=== PATIENT | male | born 1950 | race Caucasian/White ===

== ENCOUNTER → 2020-11-15 17:10 | Outpatient (BNVA) | payer MEDICARE, OTHER, SELFPAY | PROVIDERS: Visit Provider Family Medicine | DX: E11.9 Type 2 diabetes mellitus without complications (principal); E78.2 Mixed hyperlipidemia; I10 Essential (primary) hypertension; K21.9 Gastro-esophageal reflux disease without esophagitis; N40.1 Benign prostatic hyperplasia with lower urinary tract symptoms; R35.1 Nocturia | CPT/HCPCS: 80053; 80061; 83036; 84443; 85025; G0103 ==

== ENCOUNTER → 2021-03-17 10:24 | Outpatient (BNVA) | payer MEDICARE, OTHER, SELFPAY | PROVIDERS: Visit Provider Family Medicine | DX: E11.9 Type 2 diabetes mellitus without complications (principal); E78.2 Mixed hyperlipidemia; I10 Essential (primary) hypertension | CPT/HCPCS: 80053; 80061; 83036; 85025 ==

== ENCOUNTER → 2021-07-07 10:39 | Outpatient (BNVA) | payer MEDICARE, OTHER, SELFPAY | PROVIDERS: PCP Nurse Practitioner; Visit Provider Family Medicine | DX: E11.9 Type 2 diabetes mellitus without complications (principal); I10 Essential (primary) hypertension; K21.9 Gastro-esophageal reflux disease without esophagitis; N40.1 Benign prostatic hyperplasia with lower urinary tract symptoms; R35.1 Nocturia; E78.2 Mixed hyperlipidemia | CPT/HCPCS: 80053; 80061; 83036; 84443; 85025; G0103 ==

== ENCOUNTER → 2021-10-05 12:07 | Outpatient (BNVA) | payer MEDICARE, OTHER, SELFPAY | PROVIDERS: PCP Family Medicine; Visit Provider Family Medicine | DX: E11.9 Type 2 diabetes mellitus without complications (principal) | CPT/HCPCS: 83036 ==

== ENCOUNTER → 2022-02-27 14:58 | Outpatient (BNVA) | payer MEDICARE, OTHER, SELFPAY | PROVIDERS: PCP Family Medicine; Visit Provider Nurse Practitioner Family | DX: R05.9 Cough, unspecified (principal); R42 Dizziness and giddiness; E78.2 Mixed hyperlipidemia; E55.9 Vitamin D deficiency, unspecified; E11.9 Type 2 diabetes mellitus without complications | CPT/HCPCS: 71046; 80053; 80061; 82306; 82607; 83036; 83735; 83880; 84439; 84443; 85025 ==

== ENCOUNTER → 2022-11-09 09:08 | Outpatient (BNVA) | payer MEDICARE, OTHER, SELFPAY | PROVIDERS: PCP Family Medicine; Visit Provider Family Medicine | DX: E11.9 Type 2 diabetes mellitus without complications (principal); I10 Essential (primary) hypertension; E78.5 Hyperlipidemia, unspecified; Z12.5 Encounter for screening for malignant neoplasm of prostate; E78.2 Mixed hyperlipidemia | CPT/HCPCS: 80053; 80061; 83036; 84443; 85025; G0103 ==

== ENCOUNTER → 2023-06-04 09:03 | Outpatient (BNVA) | payer MEDICARE, OTHER, SELFPAY | PROVIDERS: PCP Family Medicine; Visit Provider Family Medicine | DX: J30.2 Other seasonal allergic rhinitis (principal); G47.00 Insomnia, unspecified; E11.9 Type 2 diabetes mellitus without complications; I10 Essential (primary) hypertension; K21.9 Gastro-esophageal reflux disease without esophagitis; E78.5 Hyperlipidemia, unspecified | CPT/HCPCS: 80053; 80061; 82306; 83036; 84443; 85025 ==

== ENCOUNTER 2023-06-12 06:52 | Outpatient (CLI) | payer MEDICARE, OTHER, SELFPAY ==
--- NOTE | 2023-06-12 07:15 | USCV_ITS ---
Gary Sheffield Age: 72 Gender: M : 1950 Exam Date: 06/12/2023 07:22 Ordering Phys: Sultana Castro MD Technologist: Exam Location: [facility] [place]_ Indication: cca disease Risk Factors: Previous Vascular Surgery: Right Brachial BP: / Left Brachial BP: / Right Left Velocity (cm/s) Spectral Plaque Velocity (cm/s) Spectral Plaque Syst/Diast Broadening Syst/Diast Broadening 72.80/ 17.60 Prox CCA 51.70 / 10.50 60.60/ 12.10 Mid CCA 63.10 / 16.60 63.90/ 20.90 Hetro Distal CCA 67.50 / 20.10 Hetro 81.60/ 26.50 Hetro Prox ICA 119.70/ 50.60 Hetro 115.80/47.40 Hetro Mid ICA 113.60/ 39.50 Hetro 71.30/ 19.20 Distal ICA 90.10 / 34.60 112.50 ECA 65.25 1.59 ICA/CCA 1.78 Antegrade Vertebral Antegrade 49.10/ 16.70 cm/s 32.40/ 8.90 cm/s Tri Subclavian Tri 73.10 63.70 CONCLUSIONS Right ICA stenosis <50%. Moderate atheromatous plaque right carotid bulb/ICA. Left ICA stenosis <50%. Moderate atheromatous plaque left carotid bulb/ICA. Normal antegrade Doppler flow noted in the right vertebral artery. Normal antegrade Doppler flow noted in the left vertebral artery. Porfirio Hernandez MD (Electronically Signed) Final Date: 12 June 2023 11:33 S
== END 2023-06-12 06:53 | disposition home or self-care (01) ==
PROVIDERS: PCP Family Medicine; Visit Provider Family Medicine
DX: I65.23 Occlusion and stenosis of bilateral carotid arteries (principal)
CPT/HCPCS: 80053; 80061; 82306; 83036; 84443; 85025; 93880

== ENCOUNTER → 2023-11-06 09:51 | Outpatient (BNVA) | payer MEDICARE, OTHER, SELFPAY | PROVIDERS: PCP Family Medicine; Visit Provider Family Medicine | DX: E11.9 Type 2 diabetes mellitus without complications (principal); E78.2 Mixed hyperlipidemia; G47.00 Insomnia, unspecified; I10 Essential (primary) hypertension; K21.9 Gastro-esophageal reflux disease without esophagitis; E78.5 Hyperlipidemia, unspecified; Z12.5 Encounter for screening for malignant neoplasm of prostate | CPT/HCPCS: 80053; 80061; 83036; 84443; 85025; G0103 ==

== ENCOUNTER 2024-08-19 06:00 | Outpatient (RCR) | payer MEDICARE, OTHER, SELFPAY | END 2024-08-25 23:59 | disposition home or self-care (01) | LOC: TPT 06:00 | PROVIDERS: PCP Family Medicine; Visit Provider Orthopaedic Surgery | DX: Z98.890 Other specified postprocedural states (principal) | CPT/HCPCS: 97110; 97162 ==

== ENCOUNTER 2024-08-26 06:30 | Outpatient (RCR) | payer MEDICARE, SELFPAY | END 2024-09-25 23:59 | disposition home or self-care (01) | LOC: TPT 06:30 | PROVIDERS: PCP Family Medicine; Visit Provider Orthopaedic Surgery | DX: Z98.890 Other specified postprocedural states (principal) | CPT/HCPCS: 97110 ==

== ENCOUNTER 2024-09-26 06:00 | Outpatient (RCR) | payer MEDICARE, SELFPAY | END 2024-10-25 23:59 | disposition home or self-care (01) | LOC: TPT 06:00 | PROVIDERS: PCP Nurse Practitioner Family; Visit Provider Orthopaedic Surgery | DX: Z98.890 Other specified postprocedural states (principal) | CPT/HCPCS: 97110 ==

== ENCOUNTER → 2024-09-29 08:57 | Outpatient (BNVA) | payer MEDICARE, SELFPAY | PROVIDERS: PCP Nurse Practitioner Family; Visit Provider Nurse Practitioner Family | DX: I10 Essential (primary) hypertension (principal); E78.2 Mixed hyperlipidemia | CPT/HCPCS: 80053; 80061; 83036; 84443; 85025 ==

== ENCOUNTER 2024-10-26 06:00 | Outpatient (RCR) | payer MEDICARE, SELFPAY | END 2024-11-25 23:59 | disposition home or self-care (01) | LOC: TPT 06:00 | PROVIDERS: PCP Nurse Practitioner Family; Visit Provider Orthopaedic Surgery | DX: Z98.890 Other specified postprocedural states (principal) | CPT/HCPCS: 97110 ==

== ENCOUNTER 2024-11-13 15:09 | Emergency (ER) | payer MEDICARE, SELFPAY ==
[2024-11-13] VITALS (12 sets, daily range): BP systolic 82–134; BP diastolic 58–96; PULSE 68–144; TEMP 36.8; O2SAT 90–95; BMI 36.6
--- NOTE | 2024-11-13 15:28 | ECG_ITS ---
[facility] Test Date: 2024-11-13 Pat Name: Gary Sheffield Department: Room: Gender: Male Brusher Warp: : 1950 Requested By: Chung Estrada Order Number: [id number] Dung MD: Christiano Box M.D. Measurements Intervals [place] Rate: 167 P: 0 SD: 0 QRS: 20 QRSD: 84 T: 57 QT: 266 QTc: 443 Interpretive Statements ATRIAL FIBRILLATION WITH RAPID VENTRICULAR RESPONSE MODERATE ST DEPRESSION [0.05+ mV ST DEPRESSION] CRITICAL TEST RESULT No previous ECG available for comparison Electronically Signed On 11-13-2024 23:57:26 TAPING MACHINE OPERATOR by Christiano Box M.D. [id number]
[2024-11-13] MEDS: dilTIAZem 5 mg/mL SDV 5 mL 20 MG IVP (15:52)
[2024-11-13 15:56] LABS: Basophils % 0.2 %; Eosinophils # 0.1 10^3/uL (0.0-0.8); Eosinophils % 1.3 %; Hematocrit 45.5 % (37-53); Lymphocytes # 1.7 10^3/uL (0.8-4.8); Mean Corpuscular HGB Conc 31.4 g/dL (30-55); Mean Corpuscular Hemoglobin 27.3 pg (27-33); Mean Platelet Volume 10.4 fL (7.4-10.4); Monocytes # 0.5 10^3/uL (0.2-0.9); Monocytes % 6.4 %; Neutrophils # 5.83 10^3/uL (1.8-7.7); Neutrophils % 70.6 %; Nucleated Red Blood Cells % 0 %; Platelet Count 204 10^3/cmm (157-399); Red Blood Count 5.23 10^6/uL (3.85-5.65); Red Cell Distribution Width 13.6 % (12.1-15.1); White Blood Count 8.27 10^3/uL (3.29-11.43)
[2024-11-13] MEDS: dilTIAZem 100 MG in sodium chloride 0.9% (add-van) 100 ML IV (16:13)
[2024-11-13 16:22] LABS: Troponin(5th) Baseline 15 ng/L (0-15)
[2024-11-13 16:23] LABS: Alanine Aminotransferase 7 U/L (0-41); Albumin Level 4.1 g/dL (3.5-5.2); Alkaline Phosphatase 91 U/L (40-130); Anion Gap 15.8 (5-19); Aspartate Amino Transferase 9 U/L (0-40); Blood Urea Nitrogen 15 mg/dL (8-23); Carbon Dioxide 26 mmol/L (22-29); Chloride 105 mmol/L (98-107); Creatinine Clr Calc Pharmacy 86.3136; Globulin 2.1 g/dL (1.3-4.6); Glucose 179 mg/dL (65-115); Magnesium 2.1 mg/dL (1.7-2.3); Osmolality Calculated 301 mOsm/kg (285-295); Potassium 3.8 mmol/L (3.5-5.1); Sodium 143 mmol/L (136-145); Total Bilirubin 0.4 mg/dL (0.15-1.2); Total Protein 6.2 g/dL (6.6-8.7)
--- NOTE | 2024-11-13 16:23 | ED_ITS ---
HPI - Arrhythmia/Palpitations 2 General: Chief Complaint: Arrhythmia/Palpitations Stated Complaint: high hr Time Seen by Provider: 11/13/24 15:34 History of Present Illness: Presents to the ER with complaints of heart racing. 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 He felt his heart was skipping beats. Patient denies any chest pain shortness of breath diaphoresis. Patient [place] any cardiac history does not see a shirt hemmer. Has never had this before. Related Data Home Medications Medication Instructions Recorded Confirmed atorvastatin 40 mg tablet 40 mg PO DAILY 11/13/24 11/13/24 cetirizine 10 mg tablet 10 mg PO DAILY 11/13/24 11/13/24 dapagliflozin propanediol 10 mg 10 mg PO DAILY 11/13/24 11/13/24 tablet (Farxiga) Previous Rx's Medication Instructions Recorded lancets (Accu-Chek Softclix #300 ea 03/22/21 Lancets) Prosthesis for right arm #1 ea 09/20/21 Recreational accessories for #1 ea 04/11/22 electric arm ibuprofen 800 mg tablet 800 mg PO Q8H #30 tabs 01/16/24 blood sugar diagnostic (Accu-Chek #100 ea 09/29/24 Alpa Plus test strips) glipizide 2.5 mg tablet, extended 2.5 mg PO DAILY #90 tabs 09/29/24 release 24 hr pantoprazole 40 mg tablet,delayed 40 mg PO DAILY #90 tabs 09/29/24 release tamsulosin 0.4 mg capsule (Flomax) 0.4 mg PO DAILY #30 caps 09/29/24 trazodone 100 mg tablet 100 mg PO DAILY #90 tabs 10/02/24 lisinopril 20 mg tablet 20 mg PO DAILY #30 tabs 11/05/24 Allergies Allergy/AdvReac Type Severity Reaction Status Date / Time empagliflozin Allergy Intermediate swelling Verified 11/13/24 15:36 [From Jardiance] of face Review of Systems 2 General: Reports: 10 or more systems reviewed and unremarkable except in HPI and below PFSH ED 2 PFSH: Medical History Diabetes Hypertension GERD (gastroesophageal reflux disease) BPH (benign prostatic hyperplasia) Hyperlipidemia Social History Smoking and tobacco/nicotine status: former use of tobacco/nicotine Second hand smoke exposure: No Alcohol intake: never Substance/Drug Use: never Caregiver/support person: Yes Lives independently: Yes Household members: spouse Marital status: Current occupational status: retired Current gender identity: Male Special reyna needs: No Agree to transfusion: Yes Physical Exam 2 Const: COMMON NORMALS: no acute distress, average body habitus, patient oriented x3, no limitations, healthy appearing, alert and well nourished HENMT: COMMON NORMALS: normocephalic, atraumatic, hearing grossly normal bilaterally, external ears normal, Normal external nose present and moist oral mucous membranes HEAD & SCALP: normocephalic and atraumatic NOSE: Normal external nose present EXTERNAL EAR: Yes external ears normal Neck/C-Spine: COMMON NORMALS: full ROM, no lymphadenopathy, supple, no meningeal signs, no JVD and Thyroid normal THYROID: Thyroid normal Chest: COMMONS NORMALS: normal inspection of the chest and normal palpation of entire chest wall Resp: COMMON NORMALS: normal respiratory effort, No retractions, No use of accessory muscles and clear to auscultation bilaterally AUSCULTATION: clear to auscultation bilaterally Cardio: COMMON NORMALS: no JVD, S1 normal heart sound present, S2 normal heart sound present, No gallops present (Cardio), No clicks present (Cardio), No murmurs present (Cardio) and No rub (Cardio); negative for regular rate (Tachycardic irregularly irregular) and negative for regular rhythm RATE: abnormal rate (Tachycardic irregularly irregular) R HYTHM: abnormal rhythm HEART SOUNDS: S1 normal heart sound present and S2 normal heart sound present GI: COMMON NORMALS: Normal to inspection, nondistended, normoactive bowel sounds present, Soft to palpation, non-tender, No hepatosplenomegaly present and no masses PALPATION: Yes Soft to palpation and Yes No hepatosplenomegaly present Neuro: COMMON NORMALS: patient oriented x3 SENSORIUM/ORIENTATION: Yes alert MENINGEAL SIGNS: Yes no meningeal signs Course 2 Vital Signs: Vital signs: Vital Signs Temperature 98.2 F 11/13/24 15:23 Pulse Rate 80 11/13/24 18:30 Blood Pressure 119/77 11/13/24 18:30 Pulse Oximetry 92 11/13/24 18:30 Oxygen Delivery Me thod Room Air 11/13/24 18:30 MDM - Arrhythmia/Palpitations Medical Decision Making Patient presented to the ER with A-fib with RVR was given Cardizem bolus and a Cardizem drip and converted back to normal sinus rhythm, lab work was obtained which was essentially unremarkable. Patient be discharged home and referred to cardiology on an outpatient basis. Medical Records I reviewed the patient's medical records. Lab Data I reviewed the patient's lab results. 11/13/24 15:42 11/13/24 15:42 Laboratory Results WBC 8.27 10^3/uL (3.29-11.43) 11/13/24 15:42 RBC 5.23 10^6/uL (3.85-5.65) 11/13/24 15:42 Hgb 14.30 g/dL (11.27-16.99) 11/13/24 15:42 Hct 45.5 % (37-53) 11/13/24 15:42 MCV 87.0 fl (82-101) 11/13/24 15:42 MCH 27.3 pg (27-33) 11/13/24 15:42 MCHC 31.4 g/dL (30-55) 11/13/24 15:42 RDW 13.6 % (12.1-15.1) 11/13/24 15:42 Plt Count 204 10^3/cmm (157-399) 11/13/24 15:42 MPV 10.4 fL (7.4-10.4) 11/13/24 15:42 Neut % (Auto) 70.6 % 11/13/24 15:42 Lymph % (Auto) 21.0 % 11/13/24 15:42 [place] % (Auto) 6.4 % 11/13/24 15:42 Eos % (Auto) 1.3 % 11/13/24 15:42 Baso % (Auto) 0.2 % 11/13/24 15:42 Neut # (Auto) 5.83 10^3/uL (1.8-7.7) 11/13/24 15:42 Lymph # (Auto) 1.7 10^3/uL (0.8-4.8) 11/13/24 15:42 [place] # (Auto) 0.5 10^3/uL (0.2-0.9) 11/13/24 15:42 Eos # (Auto) 0.1 10^3/uL (0.0-0.8) 11/13/24 15:42 Baso # (Auto) 0.0 10^3/uL (0.0-0.1) 11/13/24 15:42 Nucleated RBC % (auto) 0 % 11/13/24 15:42 Nucleated RBCs # 0.0 /100WBC 11/13/24 15:42 Sodium 143 mmol/L (136-145) 11/13/24 15:42 Potassium 3.8 mmol/L (3.5-5.1) 11/13/24 15:42 Chloride 105 mmol/L (98-107) 11/13/24 15:42 Carbon Dioxide 26 mmol/L (22-29) 11/13/24 15:42 Anion Gap 15.8 (5-19) 11/13/24 15:42 BUN 15 mg/dL (8-23) 11/13/24 15:42 Creatinine 1.0 mg/dL (0.7-1.2) 11/13/24 15:42 GFR Calculation Not Reportable 11/13/24 15:42 Glucose 179 mg/dL (65-115) H 11/13/24 15:42 Calculated Osmolality 301 mOsm/kg (285-295) H 11/13/24 15:42 Calcium 9.0 mg/dL (8.5-10.5) 11/13/24 15:42 Magnesium 2.1 mg/dL (1.7-2.3) 11/13/24 15:42 Total Bilirubin 0.4 mg/dL (0.15-1.2) 11/13/24 15:42 AST 9 U/L (0-40) 11/13/24 15:42 ALT 7 U/L (0-41) 11/13/24 15:42 Alkaline Phosphatase 91 U/L (40-130) 11/13/24 15:42 Troponin T Baseline 15 ng/L (0-15) 11/13/24 15:42 Troponin T 120 Minute 24.83 ng/L (0-15) H 11/13/24 18:06 Delta Troponin T 9.83 ABS# (0-10) 11/13/24 18:06 Total Protein 6.2 g/dL (6.6-8.7) L 11/13/24 15:42 Albumin 4.1 g/dL (3.5-5.2) 11/13/24 15:42 Globulin 2.1 g/dL (1.3-4.6) 11/13/24 15:42 All radiology interpretation(s) finalized by discharge Discharge Plan Discharge Patient Disposition: Home Clinical Impression: Paroxysmal A-fib Condition: Stable Prescriptions: No Action (DME) lancets [Accu-Chek Softclix Lancets] Misc See Rx Instructions .ROUTE .MEDSUPPLY Qty: 300 2RF Rx Instructions: three times daily (DME) Prosthesis for right arm See Rx Instructions .Route .MEDSUPPLY Qty: 1 0RF Rx Instructions: As directed (DME) Recreational accessories for electric arm See Rx Instructions .Route .MEDSUPPLY Qty: 1 0RF Rx Instructions: For shooting pool and target shooting with rifle and other activities that hand will not allow. tamsulosin [Flomax] 0.4 mg capsule 0.4 mg PO DAILY Qty: 30 3RF pantoprazole 40 mg tablet,delayed release (DR/EC) 40 mg PO DAILY Qty: 90 0RF glipizide 2.5 mg tablet extended release 24hr 2.5 mg PO DAILY Qty: 90 3RF (DME) Accu-Chek Alpa Plus test strp Strip See Rx Instructions .ROUTE .MEDSUPPLY Qty: 100 3RF Rx Instructions: once daily ibuprofen 800 mg tablet 800 mg PO Q8H Qty: 30 0RF trazodone 100 mg tablet 100 mg PO DAILY Qty: 90 1RF lisinopril 20 mg tablet 20 mg PO DAILY Qty: 30 5RF atorvastatin 40 mg tablet 40 mg PO DAILY cetirizine 10 mg tablet 10 mg PO DAILY dapagliflozin propanediol [Farxiga] 10 mg tablet 10 mg PO DAILY Discharge Orders: Discharge ED (Routine); Ordered 11/13/24 Ordered By: Chung Estrada Referrals: Tesha Morris FNP-C [Primary Care Provider] - 1 week Patient Instructions: Atrial Fibrillation Activity Restrictions/Additional Instructions: Your evaluation ER showed your fast heart rate was atrial fibrillation with rapid ventricular rate, you are given Cardizem and your IV which converted you back to normal sinus rhythm. You will need followed up on an outpatient basis by cardiology. Case management has been consulted they should be calling you tomorrow morning to arrange an appointment. If your symptoms return please feel free to return to the ER. Coding Level of Care Code ED Associate Property Manager for Quyen Henry
--- NOTE | 2024-11-13 16:52 | PC.NURSE ---
Dr. Estrada notified of pts blood pressure; 89/45. no orders at this time.
--- NOTE | 2024-11-13 17:34 | ECG_ITS ---
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 Measurements Intervals [place] Rate: 127 P: 0 CA: 0 QRS: 36 QRSD: 84 T: 27 QT: 307 QTc: 447 Interpretive Statements ATRIAL FIBRILLATION WITH RAPID VENTRICULAR RESPONSE ABNORMAL RHYTHM ECG Compared to ECG 11/13/2024 15:28:46 ST (T wave) deviation no longer present Electronically Signed On 11-14-2024 00:03:18 ADMINISTRATIVE LIBRARY ASSISTANT by Christiano Box M.D. [email or web address]
--- NOTE | 2024-11-13 18:16 | ECG_ITS ---
[facility]: 2024-[facility]13 Pat Name: Gary Sheffield Department: Room: Gender: Male Comptroller: : 1950 Requested By: Chung Estrada Order Number: [id number] Dung MD: Christiano Box M.D. Measurements Intervals [place] Rate: 68 P: 22 GA: 184 QRS: 28 QRSD: 86 T: 30 QT: 369 QTc: 395 Interpretive Statements SINUS RHYTHM WITH OCCASIONAL SUPRAVENTRICULAR PREMATURE COMPLEXES LOW QRS VOLTAGE IN PRECORDIAL LEADS [QRS DEFLECTION < 1.0 mV IN CHEST LEADS] Compared to ECG 11/13/2024 16:55:55 Low QRS voltage now present Atrial fibrillation no longer present Electronically Signed On 11-14-2024 00:03:22 BIOMEDICAL ENGINEER by Christiano Box M.D. [id number]
[2024-11-13 18:35] LABS: Troponin 5 2HR 24.83 ng/L (0-15); Troponin 5 2HR Delta 9.83 ABS# (0-10)
--- NOTE | 2024-11-14 07:27 | DCPLANNER ---
messaged heart care for er f/u
== END 2024-11-13 20:04 | disposition home or self-care (01) ==
PROVIDERS: Emergency Provider Emergency Medicine; PCP Nurse Practitioner Family
DX: I48.0 Paroxysmal atrial fibrillation (principal); Z87.891 Personal history of nicotine dependence; I10 Essential (primary) hypertension; E78.5 Hyperlipidemia, unspecified
CPT/HCPCS: 36415; 80053; 83735; 84484; 85025; 93005; 96365; 96366; 99284; J3490

== ENCOUNTER 2024-11-26 06:30 | Outpatient (RCR) | payer MEDICARE, SELFPAY | END 2024-12-26 23:59 | disposition home or self-care (01) | LOC: TPT 06:30 | PROVIDERS: PCP Nurse Practitioner Family; Visit Provider Orthopaedic Surgery | DX: Z98.890 Other specified postprocedural states (principal) | CPT/HCPCS: 97164 ==

== ENCOUNTER → 2025-01-19 12:23 | Outpatient (BNVA) | payer MEDICARE, SELFPAY | PROVIDERS: PCP Nurse Practitioner Family; Visit Provider Internal Medicine | DX: R07.9 Chest pain, unspecified (principal) | CPT/HCPCS: 93005; 99204 ==

== ENCOUNTER → 2025-01-29 09:32 | Outpatient (BNVA) | payer MEDICARE, OTHER, SELFPAY | PROVIDERS: PCP Nurse Practitioner Family; Visit Provider Internal Medicine | DX: I48.91 Unspecified atrial fibrillation (principal); E78.2 Mixed hyperlipidemia; I10 Essential (primary) hypertension; E11.9 Type 2 diabetes mellitus without complications | CPT/HCPCS: 80053; 80061; 83036; 84443; 85025; 85610 ==

== ENCOUNTER 2025-02-11 17:35 | Emergency (ER) | payer MEDICARE, OTHER, SELFPAY ==
[2025-02-11 17:51] VITALS: BP 157/98; PULSE 67; RESP 15; TEMP 36.6; O2SAT 95; BMI 35.3
[2025-02-11 19:23] LABS: Add Urine Microscopic? YES; RBC Urine TOO NUMEROUS TO CNT /hpf (0-2); Urine Appearance Cloudy (CLEAR); Urine Color Red (Yellow)
[2025-02-11 19:25] LABS: Add Urine Culture? Yes; Bacteria Urine TRACE /hpf; Mucus Urine TRACE /hpf
[2025-02-11 19:38] LABS: Basophils % 0.5 %; Eosinophils # 0.1 10^3/uL (0.0-0.8); Eosinophils % 1.9 %; Hematocrit 40.5 % (37-53); Lymphocytes # 1.4 10^3/uL (0.8-4.8); Lymphocytes % 23.2 %; Mean Corpuscular HGB Conc 31.1 g/dL (30-55); Mean Corpuscular Hemoglobin 27.4 pg (27-33); Mean Platelet Volume 10.3 fL (7.4-10.4); Monocytes # 0.5 10^3/uL (0.2-0.9); Monocytes % 7.8 %; Neutrophils # 4.08 10^3/uL (1.8-7.7); Neutrophils % 66.3 %; Nucleated Red Blood Cells % 0 %; Platelet Count 175 10^3/cmm (157-399); White Blood Count 6.16 10^3/uL (3.29-11.43)
[2025-02-11 19:43] LABS: Chloride 104 mmol/L (98-107); Potassium 3.6 mmol/L (3.5-5.1); Sodium 142 mmol/L (136-145)
[2025-02-11 19:55] LABS: Anion Gap 15.6 (5-19); Blood Urea Nitrogen 14 mg/dL (8-23); Calcium 8.1 mg/dL (8.5-10.5); Carbon Dioxide 26 mmol/L (22-29); Creatinine Clr Calc Pharmacy 104.4008; Glucose 98 mg/dL (65-115); Osmolality Calculated 294 mOsm/kg (285-295)
[2025-02-11 19:57] LABS: INR 10.58 (0.8-1.2)
[2025-02-11] MEDS: phytonadione (ADULT) 10 mg/mL Ampule 1 mL 5 MG PO (20:17)
--- NOTE | 2025-02-11 20:37 | W.ED.MALEGU ---
HPI - Male Genitourinary General: Chief complaint: Urogenital-Male Stated complaint: blood in urine Time Seen by Provider: 02/11/25 18:29 History of Present Illness: This patient is a 74-year-old white male who presents to the emergency department with blood in his urine. Patient noticed it today. He is not having any dysuria. No fever. Patient was recently started on Coumadin for atrial fibrillation. Associated symptoms: Reports hematuria Related Data Home Medications ?Medication ?Instructions ?Recorded ?Confirmed atorvastatin 40 mg tablet 40 mg PO DAILY 11/13/24 01/19/25 cetirizine 10 mg tablet 10 mg PO DAILY 11/13/24 01/19/25 dapagliflozin propanediol 10 mg 10 mg PO DAILY 11/13/24 01/19/25 tablet (Farxiga) Previous Rx's ?Medication ?Instructions ?Recorded lancets (Accu-Chek Softclix #300 ea 03/22/21 Lancets) Prosthesis for right arm #1 ea 09/20/21 Recreational accessories for #1 ea 04/11/22 electric arm blood sugar diagnostic (Accu-Chek #100 ea 09/29/24 Alpa Plus test strips) glipizide 2.5 mg tablet, extended 2.5 mg PO DAILY #90 tabs 09/29/24 release 24 hr lisinopril 20 mg tablet 20 mg PO DAILY #30 tabs 11/05/24 trazodone 150 mg tablet 150 mg PO DAILY #90 tabs 12/16/24 warfarin 5 mg tablet 5 mg PO DAILY #30 tabs 01/23/25 pantoprazole 40 mg tablet,delayed 40 mg PO DAILY #90 tabs 01/28/25 release tamsulosin 0.4 mg capsule (Flomax) 0.4 mg PO DAILY #30 caps 01/28/25 Allergies Allergy/AdvReac Type Severity Reaction Status Date / Time empagliflozin (From Allergy Intermediate swelling Verified 01/19/25 12:42 Jardiance) of face Review of Systems General: Reports: 10 or more systems reviewed and unremarkable except in HPI and below : Reports: hematuria [facility] PFSH: Medical History Diabetes Hypertension GERD (gastroesophageal reflux disease) BPH (benign prostatic hyperplasia) Hyperlipidemia Social History (Reviewed 01/19/25 @ 13:02 by Chris Dominguez Smoking and tobacco/nicotine status: former use of tobacco/nicotine Second hand smoke exposure: No Alcohol intake: never Substance/Drug Use: never Caregiver/support person: Yes Lives independently: Yes Household members: spouse Marital status: Current occupational status: retired Current gender identity: Male Special reyna needs: No Agree to transfusion: Yes Physical Exam Const: COMMON NORMALS: no acute distress, patient oriented x3 and no limitations GENERAL APPEARANCE: cooperative and comfortable HENMT: COMMON NORMALS: normocephalic, atraumatic, Normal nasal mucous membranes and turbinates present, moist oral mucous membranes and oropharynx normal HEAD & SCALP: normal to inspection, normocephalic and atraumatic FACE & SINUS: normal facial exam NOSE: Normal nasal mucous membranes and turbinates present Eye: COMMON NORMALS: Equal, round and reactive pupils present, EOMs intact bilaterally and conjunctivae normal GENERAL EYE: appearance normal, both eyes and all related structures CONJUNCTIVA: Yes conjunctivae normal PUPIL: Yes Equal, round and reactive pupils present Neck/C-Spine: COMMON NORMALS: supple and no JVD Chest: COMMONS NORMALS: normal inspection of the chest Resp: COMMON NORMALS: normal respiratory effort and clear to auscultation bilaterally AUSCULTATION: clear to auscultation bilaterally Cardio: COMMON NORMALS: no JVD, regular rate, regular rhythm, No gallops present (Cardio), No murmurs present (Cardio) and No rub (Cardio) RATE: regular rate RHYTHM: regular rhythm GI: COMMON NORMALS: Normal to inspection, nondistended, normoactive bowel sounds present, Soft to palpation and non-tender AUSCULTATION: Yes normoactive bowel sounds PALPATION: Yes Soft to palpation : COMMON NORMALS: Yes no CVA tenderness BLADDER/KIDNEY EXAM: Yes no CVA tenderness Back/Pelvis: COMMON NORMALS: no CVA tenderness and thoracic and lumbar spine normal to inspection Extremity: COMMON NORMALS: normal to inspection Neuro: COMMON NORMALS: patient oriented x3 and CN's II-XII intact bilaterally Psych: COMMON NORMALS: mental status grossly normal, Normal thought process present and cooperative THOUGHT PROCESS: Normal thought process present Skin: COMMON NORMALS: no rashes or lesions noted, turgor normal and no jaundice GENERAL SKIN EXAM: no rashes or lesions noted and turgor normal Course Vital Signs: Vital signs: Vital Signs Temperature 97.8 F 02/11/25 17:51 Pulse Rate 67 02/11/25 17:51 Respiratory Rate 15 02/11/25 17:51 Blood Pressure 157/98 02/11/25 17:51 Pulse Oximetry 95 02/11/25 17:51 Oxygen Delivery Me thod Room Air 02/11/25 17:51 MDM - Male Medical Decision Making CBC and BMP were normal. INR was 10.6. Urine analysis reveals red blood cells too numerous to count. A few white cells. No bacteria. Patient was given 5 mg of vitamin K p.o. Recommended he follow-up with his primary care provider soon as possible for ongoing management of the anticoagulation. He will need his INR rechecked in 2 days. He will also need referral to urology. He was discharged in stable condition. Lab Data 02/11/25 19:04 02/11/25 19:04 Laboratory Results WBC 6.16 10^3/uL (3.29-11.43) 02/11/25 19:04 RBC 4.60 10^6/uL (3.85-5.65) 02/11/25 19:04 Hgb 12.60 g/dL (11.27-16.99) 02/11/25 19:04 Hct 40.5 % (37-53) 02/11/25 19:04 MCV 88.0 fl (82-101) 02/11/25 19:04 MCH 27.4 pg (27-33) 02/11/25 19: MCHC 31.1 g/dL (30-55) 02/11/25 19:04 RDW 14.0 % (12.1-15.1) 02/11/25 19:04 Plt Count 175 10^3/cmm (157-399) 02/11/25 19:04 MPV 10.3 fL (7.4-10.4) 02/11/25 19:04 Neut % (Auto) 66.3 % 02/11/25 19:04 Lymph % (Auto) 23.2 % 02/11/25 19:04 [place] % (Auto) 7.8 % 02/11/25 19:04 Eos % (Auto) 1.9 % 02/11/25 19:04 Baso % (Auto) 0.5 % 02/11/25 19:04 Neut # (Auto) 4.08 10^3/uL (1.8-7.7) 02/11/25 19:04 Lymph # (Auto) 1.4 10^3/uL (0.8-4.8) 02/11/25 19:04 [place] # (Auto) 0.5 10^3/uL (0.2-0.9) 02/11/25 19:04 Eos # (Auto) 0.1 10^3/uL (0.0-0.8) 02/11/25 19:04 Baso # (Auto) 0.0 10^3/uL (0.0-0.1) 02/11/25 19:04 Nucleated RBC % (auto) 0 % 02/11/25 19:04 Nucleated RBCs # 0.0 /100WBC 02/11/25 19:04 PT 87.80 SECONDS (12.1-14.9) H 02/11/25 19:04 INR 10.58 (0.8-1.2) H* 02/11/25 19:04 Sodium 142 mmol/L (136-145) 02/11/25 19:04 Potassium 3.6 mmol/L (3.5-5.1) 02/11/25 19:04 Chloride 104 mmol/L (98-107) 02/11/25 19:04 Carbon Dioxide 26 mmol/L (22-29) 02/11/25 19:04 Anion Gap 15.6 (5-19) 02/11/25 19:04 BUN 14 mg/dL (8-23) 02/11/25 19:04 Creatinine 0.7 mg/dL (0.7-1.2) 02/11/25 19:04 GFR Calculation Not Reportable 02/11/25 19:04 Glucose 98 mg/dL (65-115) 02/11/25 19:04 Calculated Osmolality 294 mOsm/kg (285-295) 02/11/25 19:04 Calcium 8.1 mg/dL (8.5-10.5) L 02/11/25 19:04 Urine Color Red (Yellow) A 02/11/25 19:05 Urine Appearance Cloudy (CLEAR) A 02/11/25 19:05 Urine pH Not Reportable 02/11/25 19:05 Ur Specific [place] Not Reportable 02/11/25 19:05 Urine Protein Not Reportable 02/11/25 19:05 Urine Glucose (UA) Not Reportable 02/11/25 19:05 Urine Ketones Not Reportable 02/11/25 19:05 Urine Blood Not Reportable 02/11/25 19:05 Urine Nitrate Not Reportable 02/11/25 19:05 Urine Bilirubin Not Reportable 02/11/25 19:05 Urine Urobilinogen Not Reportable 02/11/25 19:05 Ur Leukocyte Esterase Not Reportable 02/11/25 19:05 Urine RBC Too numerous to cnt /hpf (0-2) H 02/11/25 19:05 Urine WBC 5-10 /hpf (0-5) H 02/11/25 19:05 Ur Squamous Epith Cells None /hpf (0-5) 02/11/25 19:05 Amorphous Sediment Not Reportable 02/11/25 19:05 Urine Bacteria Trace /hpf (NONE) 02/11/25 19:05 Urine Mucus Trace /hpf 02/11/25 19:05 No radiology studies performed this visit Discharge Plan Discharge Patient Disposition: Home Clinical Impression: Elevated international normalized ratio (INR) due to prior anticoagulant medication ingestion Hematuria Qualifiers: Hematuria type: gross Qualified Code(s): R31.0 - Gross hematuria Condition: Stable Prescriptions: No Action (DME) lancets [Accu-Chek Softclix Lancets] Misc See Rx Instructions .ROUTE .MEDSUPPLY Qty: 300 2RF Rx Instructions: three times daily (DME) Prosthesis for right arm See Rx Instructions .Route .MEDSUPPLY Qty: 1 0RF Rx Instructions: As directed (DME) Recreational accessories for electric arm See Rx Instructions .Route .MEDSUPPLY Qty: 1 0RF Rx Instructions: For shooting pool and target shooting with rifle and other activities that hand will not allow. glipizide 2.5 mg tablet extended release 24hr 2.5 mg PO DAILY Qty: 90 3RF (DME) Accu-Chek Alpa Plus test strp Strip See Rx Instructions .ROUTE .MEDSUPPLY Qty: 100 3RF Rx Instructions: once daily lisinopril 20 mg tablet 20 mg PO DAILY Qty: 30 5RF trazodone 150 mg tablet 150 mg PO DAILY Qty: 90 1RF warfarin 5 mg tablet 5 mg PO DAILY Qty: 30 0RF pantoprazole 40 mg tablet,delayed release (DR/EC) 40 mg PO DAILY Qty: 90 0RF tamsulosin [Flomax] 0.4 mg capsule 0.4 mg PO DAILY Qty: 30 3RF atorvastatin 40 mg tablet 40 mg PO DAILY cetirizine 10 mg tablet 10 mg PO DAILY dapagliflozin propanediol [Farxiga] 10 mg tablet 10 mg PO DAILY Discharge Orders: Discharge ED (Routine); Ordered 02/11/25 Ordered By: Gurdeep Pires Referrals: Tesha Morris FNP-C [Primary Care Provider] - Patient Instructions: Hematuria - Male, Elevated INR (ED) Activity Restrictions/Additional Instructions: Hold your Coumadin until further instructions from your primary care provider. You will need your INR rechecked in 2 days. Print Language: Macedonian Coding Level of Care Code ED Feather Sawyer for Quyen Henry
[2025-02-11 20:41] VITALS: BP 150/84; PULSE 66; RESP 18; O2SAT 94
[2025-02-11 20:42] VITALS: BP 150/84; PULSE 66; RESP 18; O2SAT 97
== END 2025-02-11 20:49 | disposition home or self-care (01) ==
PROVIDERS: Emergency Medicine; Emergency Provider Emergency Medicine; PCP Nurse Practitioner Family
DX: R79.1 Abnormal coagulation profile (principal); T45.515A Adverse effect of anticoagulants, initial encounter; R31.0 Gross hematuria; Z79.01 Long term (current) use of anticoagulants; Z87.891 Personal history of nicotine dependence; E78.5 Hyperlipidemia, unspecified; I10 Essential (primary) hypertension; E11.9 Type 2 diabetes mellitus without complications; X58.XXXA Exposure to other specified factors, initial encounter
CPT/HCPCS: 36415; 80048; 81001; 84597; 85025; 85610; 87086; 99283; J3430

== ENCOUNTER → 2025-02-12 09:30 | Outpatient (BNVA) | payer MEDICARE, OTHER, SELFPAY | PROVIDERS: PCP Nurse Practitioner Family; Visit Provider Nurse Practitioner Family | DX: R31.0 Gross hematuria (principal) | CPT/HCPCS: 84153 ==

== ENCOUNTER 2025-02-13 09:57 | Outpatient (CLI) | payer MEDICARE, OTHER, SELFPAY | END 2025-02-13 09:58 | disposition home or self-care (01) | LOC: LAB 10:00 | PROVIDERS: PCP Nurse Practitioner Family; Visit Provider Internal Medicine | DX: R60.0 Localized edema (principal); I48.91 Unspecified atrial fibrillation | CPT/HCPCS: 36415 ==

== ENCOUNTER 2025-02-13 14:15 | Emergency (ER) | payer MEDICARE, OTHER, SELFPAY ==
[2025-02-13 15:12] VITALS: BP 138/82; PULSE 80; RESP 18; TEMP 37.2; O2SAT 93; BMI 34.5
[2025-02-13 15:41] LABS: Basophils % 0.5 %; Eosinophils # 0.1 10^3/uL (0.0-0.8); Eosinophils % 0.7 %; Hematocrit 44.1 % (37-53); Lymphocytes # 0.5 10^3/uL (0.8-4.8); Lymphocytes % 6.1 %; Mean Corpuscular HGB Conc 30.2 g/dL (30-55); Mean Corpuscular Hemoglobin 27.3 pg (27-33); Mean Corpuscular Volume 90.4 fl (82-101); Mean Platelet Volume 9.9 fL (7.4-10.4); Monocytes # 0.4 10^3/uL (0.2-0.9); Monocytes % 4.3 %; Neutrophils # 7.07 10^3/uL (1.8-7.7); Neutrophils % 87.9 %; Nucleated Red Blood Cells % 0 %; Platelet Count 182 10^3/cmm (157-399); Red Blood Count 4.88 10^6/uL (3.85-5.65); Red Cell Distribution Width 14.2 % (12.1-15.1); White Blood Count 8.05 10^3/uL (3.29-11.43)
[2025-02-13 15:57] LABS: INR 1.51 (0.8-1.2)
[2025-02-13 16:04] LABS: Alanine Aminotransferase < 5 U/L (0-41); Alkaline Phosphatase 88 U/L (40-130); Anion Gap 15.3 (5-19); Aspartate Amino Transferase 10 U/L (0-40); Blood Urea Nitrogen 14 mg/dL (8-23); Calcium 8.4 mg/dL (8.5-10.5); Carbon Dioxide 26 mmol/L (22-29); Chloride 103 mmol/L (98-107); Creatinine Clr Calc Pharmacy 75.1489; Globulin 2.9 g/dL (1.3-4.6); Glucose 146 mg/dL (65-115); Lipase 24 U/L (13-60); Osmolality Calculated 293 mOsm/kg (285-295); Potassium 4.3 mmol/L (3.5-5.1); Sodium 140 mmol/L (136-145); Total Bilirubin 0.7 mg/dL (0.15-1.2); Total Protein 6.9 g/dL (6.6-8.7)
[2025-02-13 18:14] VITALS: PULSE 69; O2SAT 93
== END 2025-02-13 19:49 | disposition left against medical advice (07) ==
PROVIDERS: Physician Assistant; Emergency Provider Family Medicine; PCP Nurse Practitioner Family
DX: Z53.21 Procedure and treatment not carried out due to patient leaving prior to being seen by health care provider (principal); Z01.89 Encounter for other specified special examinations
CPT/HCPCS: 36415; 80053; 83690; 85025; 85610

== ENCOUNTER → 2025-02-23 08:37 | Outpatient (BNVA) | payer MEDICARE, OTHER, SELFPAY | PROVIDERS: PCP Nurse Practitioner Family; Visit Provider Nurse Practitioner Family | DX: R60.0 Localized edema (principal); I48.91 Unspecified atrial fibrillation | CPT/HCPCS: 85610 ==

== ENCOUNTER 2025-02-27 07:22 | Outpatient (CLI) | payer MEDICARE, OTHER, SELFPAY ==
--- NOTE | 2025-02-27 | ECG_ITS ---
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 Interpretive Statements LEXISCAN: Procedure: At the baseline, the blood pressure was 160/91 mmHg with a heart rate of 69 bpm. The electrocardiogram showed normal sinus rhythm, normal axis with normal ST and T's. The Lexiscan was infused over a period of 20 seconds. A total of 0.4 mg of Lexiscan was infused. The stress phase was continued for a total of 5 minutes. Heart rate was at the end of stress phase was 97 bpm and a blood pressure of 186/89 mmHg. The EKG at the peak infusion revealed normal sinus rhythm with no significant ST-T wave changes. Sestamibi was injected 20 seconds after the Lexiscan infusion. Blood pressure at the end of recovery phase was 174/93 mmHg with a heart rate of 89 bpm. Conclusion: 1. Normal EKG response to Lexiscan infusion 2. No Lexiscan induced chest pain or cardiac arrhythmia. 3. Normal blood pressure and heart rate response. 4. Sestamibi/sestamibi perfusion scan pending; see separate report. Electronically Signed On 03-14-2025 21:06:01 CDT by Angel Bhatti M.D. [email or web address] [id number]
[2025-02-27 07:39] VITALS: BMI 34.5
--- NOTE | 2025-02-27 07:44 | NMCV_ITS ---
NM hailey perf SPECT r/s* [id number] Chung Sheffield Age: 74 Gender: M : 1950 Exam Date: 02/27/2025 08:38 Ordering Phys: Angel Bhatti M.D ([email or web address]) Technologist: MASHA Jordan Exam Location: [facility] Indications: CP STRESS TEST [facility] for [facility] IMAGE PROTOCOL Rest/Stress 1 Lexiscan Day Radiopharmaceutical Dose (mCi) Administration Site Administered by Rest: Tc-99m 10.9 IV MASHA Joyner Sestamibi Stress:Tc-99m 32.7 IV MASHA Jordan Sestamianat Rest: 27-Feb-2025 60 Discovery 630 Stress: 27-Feb-2025 30 Discovery 630 0.4mg Lexiscan. Images obtained in supine and prone position. SPECT RESULTS Technical Quality: Good Raw Data Analysis: Normal Image Corrections: No attenuation or motion correction applied Summed Stress Score: 6 Summed Rest Score: 10 Summed Difference Score: 1 PERFUSION FINDINGS There is reduced radiotracer uptake in the inferior, apical and inferolateral elizondo that resolves on prone imaging. This is consistent with attenuation artifact. No evidence of ischemia FUNCTIONAL RESULTS (calculated via Gated SPECT) Stress Image LV EF (%): 84 Stress EDV (mL):100 TID: 0.91 Stress ESV (mL):16 FUNCTIONAL FINDINGS: There is normal left ventricular systolic function. IMPRESSIONS 1. Attenuation artifact seen in inferior, apical, inferolateral wall. No evidence of ischemia seen. 2. LV systolic function is normal Angel Bhatti MD (Electronically Signed) Final Date: 03 March 2025 11:15 S
[2025-02-27] MEDS: regadenoson 0.4 Mg/5 ml Syringe IVP (09:15)
[2025-02-27 09:22] VITALS: BP 174/93; PULSE 90
--- NOTE | 2025-02-27 13:30 | USCV_ITS ---
Chung Sheffield Age: 74 Gender: M : 1950 Exam Date: 02/27/2025 08:02 Ordering Phys: Angel Bhatti M.D ([email or web address]) Technologist: Exam Location: [facility] Indication: cp BP: 120 / 70 HR: 69 Rhythm: Sinus Technical Quality: Adequate MEASUREMENTS (Male / Female) Normal Values 2D ECHO LV Diastolic Diameter PLAX 5.0 cm 4.2 - 5.9 / 3.9 - 5.3 cm IVS Diastolic Thickness 1.7 cm 0.6 - 1.0 / 0.6 - 0.9 cm IVS Systolic Thickness 1.8 cm LVPW Diastolic Thickness 1.4 cm 0.6 - 1.0 / 0.6 - 0.9 cm LVPW Systolic Thickness 1.9 cm LVOT Diameter 2.1 cm LV Ejection Fraction 2D Teich 55.6 % LV Ejection Fraction MOD 4C 63.8 % LV Ejection Fraction MOD 2C 67.8 % LV Ejection Fraction 2C AL 67.1 % LA Diameter 4.3 cm RA Systolic Volume 4C AL 105.1 ml RA Systolic Volume 4C MOD 108.7 ml Aorta at Sinotubular Diameter 3.7 cm IVC Diameter 1.6 cm M-MODE LA Ao Ratio MM 1.1 AV Cusp Separation MM 2.5 cm DOPPLER AV Peak Velocity 154.0 cm/s LVOT Peak Velocity 109.0 cm/s AV Area Cont Eq vti 3.1 cm squared AV Area Cont Eq pk 2.4 cm squared MV Peak Velocity 137.0 cm/s MV Area PHT 3.2 cm squared Mitral E to A Ratio 0.9 TV Peak Velocity 142.3 cm/s TR Peak Velocity 156.0 cm/s TR Peak Gradient 9.7 mmHg TV Peak E Velocity 146.0 cm/s PV Peak Velocity 98.0 cm/s FINDINGS Left Ventricle Left ventricle is normal in size. LV systolic function is normal with EF of 60-65%. No regional wall motion abnomalities. Right Ventricle Normal in size and function Right Atrium Dilated Left Atrium Dilated Mitral Valve Structurally normal mitral valve. Mild mitral regurgitation Aortic Valve Grossly normal. No significant stenosis or regurgitation. Tricuspid Valve Insufficient TR jet to calculate RVSP Pulmonic Valve Not well visualized Pericardium Normal Aorta Ascending aorta appars dilated with diameter of 3.69cm IVC Normal CONCLUSIONS LV systolic function is normal with EF of 60-65% Biatrial dilation Mild mitral regurgitation Ascending aorta appears to be dilated with diameter of 3.69cm No comparison studies are available. Angel Bhatti MD (Electronically Signed) Final Date: 15 March 2025 22:46 S
== END 2025-02-27 07:23 | disposition home or self-care (01) ==
LOC: CDL 07:22
PROVIDERS: PCP Nurse Practitioner Family; Visit Provider Internal Medicine
DX: R07.9 Chest pain, unspecified (principal)
CPT/HCPCS: 36415; 78452; 93017; 93306; 96374; A9500; J2785

== ENCOUNTER 2025-03-01 16:24 | Emergency (ER) | payer MEDICARE, OTHER, SELFPAY ==
[2025-03-01 16:30] VITALS: BP 146/75; PULSE 63; RESP 17; TEMP 36.6; O2SAT 97; BMI 34.4
--- NOTE | 2025-03-01 17:21 | W.ED.WOUNDLC ---
HPI - Wound/Laceration General: Chief Complaint: Wound/Laceration Stated Complaint: L hand middle finger lac, on blood thinner Time Seen by Provider: 03/01/25 16:34 Source: patient Mode of arrival: ambulatory Limitations: no limitations History of Present Illness: 74yo male presents with significant other for evaluation of a laceration to the left middle finger that occurred at 0 930 this morning when he was working on his oven. Patient states that the wrench slipped, causing him to slice his finger. Patient reports that he does take warfarin. States that he will get the bleeding stopped, then bend his finger and the bleeding will begin again. Patient is unsure when his last tetanus was updated. He denies any other injury or concern at this time. Associated symptoms: Denies chills or fever(s) Related Data Home Medications ?Medication ?Instructions ?Recorded ?Confirmed atorvastatin 40 mg tablet 40 mg PO DAILY 11/13/24 02/12/25 cetirizine 10 mg tablet 10 mg PO DAILY 11/13/24 02/12/25 dapagliflozin propanediol 10 mg 10 mg PO DAILY 11/13/24 02/12/25 tablet (Farxiga) Previous Rx's ?Medication ?Instructions ?Recorded lancets (Accu-Chek Softclix #300 ea 03/22/21 Lancets) Prosthesis for right arm #1 ea 09/20/21 Recreational accessories for #1 ea 04/11/22 electric arm blood sugar diagnostic (Accu-Chek #100 ea 09/29/24 Alpa Plus test strips) glipizide 2.5 mg tablet, extended 2.5 mg PO DAILY #90 tabs 09/29/24 release 24 hr lisinopril 20 mg tablet 20 mg PO DAILY #30 tabs 11/05/24 trazodone 150 mg tablet 150 mg PO DAILY #90 tabs 12/16/24 pantoprazole 40 mg tablet,delayed 40 mg PO DAILY #90 tabs 01/28/25 release tamsulosin 0.4 mg capsule (Flomax) 0.4 mg PO DAILY #30 caps 01/28/25 warfarin 5 mg tablet 5 mg PO DAILY #90 tabs 02/24/25 cephalexin 500 mg capsule 500 mg PO QID #20 caps 03/01/25 Allergies Allergy/AdvReac Type Severity Reaction Status Date / Time empagliflozin (From Allergy Intermediate swelling Verified 02/12/25 08:07 Jardiance) of face Review of Systems Const: Denies: fever(s), chills or body aches Musc: Reports: other (Laceration left middle finger) [facility] ED PFSH: Medical History Diabetes Hypertension GERD (gastroesophageal reflux disease) BPH (benign prostatic hyperplasia) Hyperlipidemia Social History Smoking and tobacco/nicotine status: former use of tobacco/nicotine Second hand smoke exposure: No Alcohol intake: never Substance/Drug Use: never Caregiver/support person: Yes Lives independently: Yes Household members: spouse Marital status: Current occupational status: retired Current gender identity: Male Special reyna needs: No Agree to transfusion: Yes Physical Exam Const: COMMON NORMALS: no acute distress, patient oriented x3 and alert GENERAL APPEARANCE: cooperative OTHER: Patient is sitting upright on the stretcher no acute distress. He is able to give history with no difficulty. He is interactive with exam appropriately. Significant other is at bedside HENMT: COMMON NORMALS: normocephalic HEAD & SCALP: normocephalic Chest: CHEST: Yes Symmetrical chest wall rise Resp: COMMON NORMALS: normal respiratory effort and No use of accessory muscles EFFORT & INSPECTION: Yes able to speak in complete sentences and Yes symmetric chest movement Extremity: RIGHT UPPER EXTREMITY: Yes hand & digits (FROM with no difficulty. Sensation intact. Capillary refill < 3 sec) Neuro: COMMON NORMALS: patient oriented x3 SENSORIUM/ORIENTATION: Yes alert Psych: COMMON NORMALS: cooperative Skin: TRAUMA: laceration L-shaped (left middle finger) Procedures Laceration Laceration 1: Site: hand (left middle finger) Side (If applicable): left Size (cm): 3 Description: linear ( L shaped) Depth: simple, single layer Pre-repair: wound explored and irrigated extensively Skin layer closed with: nylon Size (cm): 4-0 Number of sutures: 5 Technique: simple, interrupted Nerve Block Nerve Block 1: Local Anesthetic: lidocaine 2% Amount of anesthesia used (mL): 3 Side: left Nerve Blocks: digital (left middle finger) Procedure Successful: Yes Patient Tolerated Procedure: well Complications: none Course Vital Signs: Vital signs: Vital Signs Temperature 97.9 F 03/01/25 16:30 Pulse Rate 63 03/01/25 16:30 Respiratory Rate 17 03/01/25 16:30 Blood Pressure 146/75 03/01/25 16:30 Pulse Oximetry 97 03/01/25 16:30 Oxygen Delivery Me thod Room Air 03/01/25 16:30 MDM - Wound/Laceration Medical Decision Making 74yo male presents with significant other for evaluation of a laceration to the left middle finger that occurred at 0 930 this morning when he was working on his oven. Patient states that the wrench slipped, causing him to slice his finger. Patient reports that he does take warfarin. States that he will get the bleeding stopped, then bend his finger and the bleeding will begin again. Patient is unsure when his last tetanus was updated. He denies any other injury or concern at this time. Patient is nontoxic in appearance. Vital signs are stable. Tetanus updated. Digital block completed for laceration repair, patient tolerated well. Wound was copiously irrigated and closed with sutures. Patient tolerated procedure well. Discussed wound care as well as concern for infection. Cephalexin sent to patient's pharmacy. Recommend he follow-up with primary care/urgent care in 7 to 10 days for suture removal, sooner if needed. Return precautions provided. Patient states understanding and has no further questions or concerns at this time. No radiology studies performed this visit Discharge Plan Discharge Patient Disposition: Home Clinical Impression: Laceration of finger of left hand, Need for prophylactic vaccination against diphtheria and tetanus Condition: Stable Prescriptions: New cephalexin 500 mg capsule 500 mg PO QID Qty: 20 0RF No Action (DME) lancets [Accu-Chek Softclix Lancets] Misc See Rx Instructions .ROUTE .MEDSUPPLY Qty: 300 2RF Rx Instructions: three times daily (DME) Prosthesis for right arm See Rx Instructions .Route .MEDSUPPLY Qty: 1 0RF Rx Instructions: As directed (DME) Recreational accessories for electric arm See Rx Instructions .Route .MEDSUPPLY Qty: 1 0RF Rx Instructions: For shooting pool and target shooting with rifle and other activities that hand will not allow. glipizide 2.5 mg tablet extended release 24hr 2.5 mg PO DAILY Qty: 90 3RF (DME) Accu-Chek Alpa Plus test strp Strip See Rx Instructions .ROUTE .MEDSUPPLY Qty: 100 3RF Rx Instructions: once daily lisinopril 20 mg tablet 20 mg PO DAILY Qty: 30 5RF trazodone 150 mg tablet 150 mg PO DAILY Qty: 90 1RF pantoprazole 40 mg tablet,delayed release (DR/EC) 40 mg PO DAILY Qty: 90 0RF tamsulosin [Flomax] 0.4 mg capsule 0.4 mg PO DAILY Qty: 30 3RF warfarin 5 mg tablet 5 mg PO DAILY Qty: 90 3RF Protocol: Dose Management Condition: Sunday Dose/Route: 0 mg Instruction: 0 tablets Condition: Sunday Dose/Route: 2.5 mg Instruction: 0.5 x 5 mg tablets Condition: Sunday Dose/Route: 0 mg Instruction: 0 tablets Condition: Sunday Dose/Route: 2.5 mg Instruction: 0.5 x 5 mg tablets Condition: Dose/Route: 0 mg Instruction: 0 tablets Condition: Sunday Dose/Route: 2.5 mg Instruction: 0.5 x 5 mg tablets Condition: Sunday Dose/Route: 2.5 mg Instruction: 0.5 x 5 mg tablets Protocol Text: Adjustment Start Date: Sunday02/23/25 INR Value: 46.8 Seconds INR Date: 02/23/25 Recheck Date: 03/02/25 atorvastatin 40 mg tablet 40 mg PO DAILY cetirizine 10 mg tablet 10 mg PO DAILY dapagliflozin propanediol [Farxiga] 10 mg tablet 10 mg PO DAILY Discharge Orders: Discharge ED (Routine); Ordered 03/01/25 Ordered By: Bridger Lubin Referrals: Tesha Morris FNP-C [Primary Care Provider] - Discharge Diet: Usual diet Discharge Activity: Resume usual activity Patient Instructions: Laceration (ED) Activity Restrictions/Additional Instructions: The laceration of the left middle finger was repaired with sutures. Please wash the wound at least twice daily with soap and water. Avoid using alcohol, peroxide, or iodine on the wound. Avoid submersion of the wound under any water until it is healed Cephalexin has been sent to the pharmacy to help prevent infection of the finger. Follow-up with primary care or urgent care in 7 to 10 days for suture removal, sooner if needed Return to the emergency department if any further injury, concern for infection, and as needed Print Language: Luxembourger Coding Level of Care Code ED Demo Specialist for Chg Fwd
[2025-03-01] MEDS: tetanus-dipt-pertussis 0.5 mL SDV IM (17:53)
[2025-03-01] MEDS: lidocaine 2% INJ 20 mL INJECTION (17:59)
[2025-03-01 18:02] VITALS: BP 126/78; PULSE 55; O2SAT 98
== END 2025-03-01 17:49 | disposition home or self-care (01) ==
PROVIDERS: Emergency Provider Nurse Practitioner; PCP Nurse Practitioner Family
DX: S61.213A Laceration without foreign body of left middle finger without damage to nail, initial encounter (principal); Z23 Encounter for immunization; Z79.01 Long term (current) use of anticoagulants; Z87.891 Personal history of nicotine dependence; E11.9 Type 2 diabetes mellitus without complications; I10 Essential (primary) hypertension; E78.5 Hyperlipidemia, unspecified; X58.XXXA Exposure to other specified factors, initial encounter
CPT/HCPCS: 12002; 90471; 90715; 99283; J9999

== ENCOUNTER → 2025-03-02 09:45 | Outpatient (BNVA) | payer MEDICARE, OTHER, SELFPAY | PROVIDERS: PCP Nurse Practitioner Family; Visit Provider Nurse Practitioner Family | DX: Z79.01 Long term (current) use of anticoagulants (principal) | CPT/HCPCS: 85610 ==

== ENCOUNTER → 2025-03-16 09:09 | Outpatient (BNVA) | payer MEDICARE, OTHER, SELFPAY | PROVIDERS: PCP Nurse Practitioner Family; Visit Provider Nurse Practitioner Family | DX: Z79.01 Long term (current) use of anticoagulants (principal) | CPT/HCPCS: 85610 ==

== ENCOUNTER → 2025-03-23 09:21 | Outpatient (BNVA) | payer MEDICARE, OTHER, SELFPAY | PROVIDERS: PCP Nurse Practitioner Family; Visit Provider Internal Medicine | DX: Z79.01 Long term (current) use of anticoagulants (principal) | CPT/HCPCS: 85610 ==

== ENCOUNTER → 2025-03-30 09:43 | Outpatient (BNVA) | payer MEDICARE, OTHER, SELFPAY | PROVIDERS: PCP Nurse Practitioner Family; Visit Provider Nurse Practitioner Family | DX: Z79.01 Long term (current) use of anticoagulants (principal) | CPT/HCPCS: 85610 ==

== ENCOUNTER → 2025-04-06 09:54 | Outpatient (BNVA) | payer MEDICARE, OTHER, SELFPAY | PROVIDERS: PCP Nurse Practitioner Family; Visit Provider Nurse Practitioner Family | DX: Z79.01 Long term (current) use of anticoagulants (principal) | CPT/HCPCS: 85610 ==

== ENCOUNTER 2025-04-21 12:07 | Outpatient (CLI) | payer MEDICARE, OTHER, SELFPAY | END 2025-04-21 12:08 | LOC: RAD 04-22 06:09 → APT 04-22 06:10 | PROVIDERS: PCP Nurse Practitioner Family; Visit Provider Internal Medicine | DX: I48.91 Unspecified atrial fibrillation (principal); Z79.01 Long term (current) use of anticoagulants; E78.2 Mixed hyperlipidemia; I10 Essential (primary) hypertension; Z87.891 Personal history of nicotine dependence | CPT/HCPCS: 85610; 99213 ==

== ENCOUNTER 2025-05-04 10:46 | Outpatient (CLI) | payer MEDICARE, OTHER, SELFPAY ==
--- NOTE | 2025-05-04 10:51 | XR_ITS ---
WS: [id number] CHEST 2 VIEWS HISTORY: GROSS HEMATURIA COMPARISON: 02/27/2022 Lungs: Clear with no abnormality. No pleural effusion or pneumothorax. Cardiac size: Normal. Mediastinum/Aorta: Normal mediastinum. Bones: Prior LEFT shoulder replacement. Degenerative thoracic spine disease. XR/XR chest 2V* [id number] IMPRESSION: No acute cardiopulmonary disease.
[2025-05-04 12:05] LABS: Basophils % 0.4 %; Eosinophils # 0.1 10^3/uL (0.0-0.8); Eosinophils % 1.4 %; Hematocrit 42.3 % (37-53); Lymphocytes # 1.1 10^3/uL (0.8-4.8); Lymphocytes % 21.2 %; Mean Corpuscular HGB Conc 31.4 g/dL (30-55); Mean Corpuscular Hemoglobin 27.5 pg (27-33); Mean Corpuscular Volume 87.4 fl (82-101); Mean Platelet Volume 10.6 fL (7.4-10.4); Monocytes # 0.4 10^3/uL (0.2-0.9); Monocytes % 7.8 %; Neutrophils # 3.43 10^3/uL (1.8-7.7); Neutrophils % 68.8 %; Nucleated Red Blood Cells % 0 %; Platelet Count 170 10^3/cmm (157-399); Red Blood Count 4.84 10^6/uL (3.85-5.65); Red Cell Distribution Width 14.5 % (12.1-15.1); White Blood Count 4.99 10^3/uL (3.29-11.43)
[2025-05-04 12:24] LABS: Alanine Aminotransferase 8 U/L (0-41); Albumin Level 3.9 g/dL (3.5-5.2); Alkaline Phosphatase 80 U/L (40-130); Anion Gap 13.6 (5-19); Aspartate Amino Transferase 11 U/L (0-40); Blood Urea Nitrogen 19 mg/dL (8-23); Calcium 8.9 mg/dL (8.5-10.5); Carbon Dioxide 25 mmol/L (22-29); Chloride 103 mmol/L (98-107); Globulin 2.7 g/dL (1.3-4.6); Glucose 80 mg/dL (65-115); Osmolality Calculated 287 mOsm/kg (285-295); Potassium 3.6 mmol/L (3.5-5.1); Sodium 138 mmol/L (136-145); Total Bilirubin 0.5 mg/dL (0.15-1.2); Total Protein 6.6 g/dL (6.6-8.7)
== END 2025-05-04 10:47 | disposition home or self-care (01) ==
PROVIDERS: PCP Nurse Practitioner Family; Visit Provider Urology
DX: R31.0 Gross hematuria (principal); Z96.612 Presence of left artificial shoulder joint; M47.894 Other spondylosis, thoracic region
CPT/HCPCS: 71046; 80053; 85025

== ENCOUNTER → 2025-06-22 12:04 | Outpatient (BNVA) | payer MEDICARE, OTHER, SELFPAY | PROVIDERS: PCP Nurse Practitioner Family; Visit Provider Nurse Practitioner Family | DX: Z09 Encounter for follow-up examination after completed treatment for conditions other than malignant neoplasm (principal); E11.9 Type 2 diabetes mellitus without complications; E78.2 Mixed hyperlipidemia | CPT/HCPCS: 80053; 80061; 83036; 84443; 85025 ==

== ENCOUNTER → 2025-09-30 10:04 | Outpatient (BNVA) | payer MEDICARE, OTHER, SELFPAY | PROVIDERS: PCP Nurse Practitioner Family; Visit Provider Nurse Practitioner Family | DX: E11.9 Type 2 diabetes mellitus without complications (principal); G47.00 Insomnia, unspecified; M10.9 Gout, unspecified; E78.2 Mixed hyperlipidemia | CPT/HCPCS: 80053; 80061; 83036; 84550; 85025 ==

== ENCOUNTER → 2025-10-20 15:04 | Outpatient (BNVA) | payer MEDICARE, OTHER, SELFPAY | PROVIDERS: PCP Nurse Practitioner Family; Visit Provider Internal Medicine | DX: I48.91 Unspecified atrial fibrillation (principal); E78.2 Mixed hyperlipidemia; I10 Essential (primary) hypertension; Z87.891 Personal history of nicotine dependence; Z79.01 Long term (current) use of anticoagulants | CPT/HCPCS: 99214 ==